=== PATIENT | female | born 1935 | race Caucasian/White ===

== ENCOUNTER 2019-12-18 14:52 | Outpatient (NON) | payer MEDICARE, SELFPAY ==
[2019-12-18 15:10] LABS: Basophils Absolute Auto 0.03 K/mm3 (0.00-0.10); Basophils Percent Auto 0.4 % (0.0-1.0); Eosinophils Absolute Auto 0.08 K/mm3 (0.02-0.50); Eosinophils Percent Auto 1.2 % (1.0-6.0); Hematocrit 39.4 % (35.0-42.0); Hemoglobin 13.1 g/dL (11.7-13.8); Immature Granulocyte Absolute 0.02 K/mm3 (0.00-0.00); Immature Granulocyte Percent A 0.3 % (0.0-0.0); Lymphocytes Absolute Auto 2.64 K/mm3 (1.10-4.50); Lymphocytes Percent Auto 38.9 % (18.0-42.0); Mean Corpuscular HGB Conc 33.2 g/dL (32.0-36.0); Mean Corpuscular Hemoglobin 30.6 pg (27.0-31.0); Mean Corpuscular Volume 92.1 fL (78.0-102.0); Mean Platelet Volume 9.8 fl (9.2-11.8); Monocytes Absolute Auto 0.55 K/mm3 (0.10-0.90); Monocytes Percent Auto 8.1 % (2.0-11.0); Neutrophils Absolute Auto 3.5 K/mm3 (1.7-7.2); Neutrophils Percent Auto 51.1 % (50.0-70.0); Platelet Count Result 242 K/mm3 (150-420); Red Blood Count 4.28 M/mm3 (4.20-5.40); Red Cell Distribution Width 12.3 % (11.6-14.4); White Blood Count 6.8 K/mm3 (4.8-10.8)
[2019-12-18 15:35] LABS: Alanine Aminotransferase 34 U/L (14-59); Alkaline Phosphatase 125 U/L (46-116); Anion Gap 8 mmol/L (8-16); Aspartate Amino Transferase 23 U/L (15-37); Bilirubin,Total 1.7 mg/dL (0.00-1.00); Blood Urea Nitrogen 18 mg/dL (7-18); Calcium 9.4 mg/dL (8.5-10.1); Carbon Dioxide 31 mmol/L (21-32); Chloride 102 mmol/L (98-108); Cholesterol 167 mg/dL (0-200); Estimated Glomerular Filt Rate 50; Glucose 147 mg/dL (70-99); HDL Direct 42 mg/dL (40-60); LDL Cholesterol Calculated 79 mg/dL (<130); Osmolality Calculated 296 mOsm/kg (285-295); Potassium 3.7 mmol/L (3.5-5.1); Sodium 141 mmol/L (136-145); Total Protein 7.8 g/dL (6.4-8.2); Triglycerides 228 mg/dL (0-150)
[2019-12-19 16:29] LABS: Hemoglobin A1C 5.9 % (<5.7)
== END 2019-12-18 14:53 ==
PROVIDERS: PCP Nurse Practitioner Family; Visit Provider Nurse Practitioner Family
DX: E78.5 Hyperlipidemia, unspecified (principal); Z00.00 Encounter for general adult medical examination without abnormal findings; I10 Essential (primary) hypertension; R73.01 Impaired fasting glucose
CPT/HCPCS: 36415; 80053; 80061; 83036; 85025

== ENCOUNTER 2020-08-31 15:29 | Emergency (ER) | payer MEDICARE, SELFPAY ==
--- NOTE | ~2020-08-31 | CT_ITS ---
EXAMINATION: CT chest abdomen pelvis w con DATE: 08/31/2020 17:22 INDICATION: Left lower chest pain and right upper quadrant abdominal pain. TECHNIQUE: Computed tomography (CT) of the chest, abdomen, and pelvis was performed with 100 mL Omnip aque-350 intravenous contrast. Automated exposure control and iterative reconstruction technique were employed. The dose-length product was 489.22 mGy-cm. COMPARISON: None FINDINGS: CHEST CT: Mild dependent atelectasis in the bilateral lower lobes. A few scattered small bilateral calcified pu lmonary nodules consistent with old granulomatous disease. No pneumonia, pulmonary edema, pleural eff usion or pneumothorax. Heart size is normal. Atherosclerotic coronary artery calcification is. Aortic valve calcification. No pericardial effusion. Thoracic aorta is normal in caliber with no dissection . No pathologically enlarged thoracic lymphadenopathy. A few old healed posterior right rib fractures . 4 cm heterogeneously enhancing thyroid nodule involving the isthmus and right thyroid lobe. ABDOMEN/PELVIS CT: Liver, gallbladder, spleen, pancreas, bilateral adrenal glands and kidneys are normal. Air-fluid leve l within a 2.2 cm duodenal diverticulum. Large amount of stool at the sigmoid colon and rectum. Corre late clinically for constipation. Bowels are otherwise unremarkable with no abnormal wall thickening or obstruction. The appendix is not visualized. No pericecal inflammatory change to suggest acute tani endicitis. Bladder is normal. The uterus is not identified and has likely been surgically resected. N o free intraperitoneal gas or fluid. There is calcified atherosclerosis of the aorta and many of the other arteries. No pathologically enlarged abdominal or pelvic lymphadenopathy. 25 degrees lumbar le voscoliosis with severe spondylosis. IMPRESSION: 1. No acute intrathoracic, abdominal or pelvic process. 2. 4 cm thyroid nodule. Reviewed, dictated and finalized at location A.
[2020-08-31 15:30] VITALS: BP 108/57; PULSE 66; PULSE 76; RESP 15; TEMP 36.6; O2SAT 94
--- NOTE | 2020-08-31 16:05 | ECG_ITS ---
Measurements Intervals [place] Rate: 69 P: 37 MO: 175 QRS: 7 QRSD: 97 T: 61 QT: 379 QTc: 408 Interpretive Statements SINUS RHYTHM NORMAL ECG Electronically Signed On 09-01-2020 20:42:08 CDT by Ag Hardin D.O.
[2020-08-31] MEDS: MAG HYDROX/ALUMINUM HYD/SIMETH 30 ML, PHENobarb/HYOSCY/ATROPINE/SCOP 32.4 MG, LIDOCAINE... PO (16:20)
[2020-08-31] MEDS: ONDANSETRON INJ 4 MG/2 ML VIAL IV PUSH (16:22)
[2020-08-31] MEDS: PANTOPRAZOLE SODIUM IV 40 MG VIAL IV PUSH (16:24)
[2020-08-31 16:26] LABS: Basophils Absolute Auto 0.05 K/mm3 (0.00-0.10); Basophils Percent Auto 0.6 % (0.0-1.0); Eosinophils Absolute Auto 0.11 K/mm3 (0.02-0.50); Eosinophils Percent Auto 1.3 % (1.0-6.0); Hematocrit 37.3 % (35.0-42.0); Hemoglobin 12.4 g/dL (11.7-13.8); Immature Granulocyte Absolute 0.03 K/mm3 (0.00-0.00); Immature Granulocyte Percent A 0.4 % (0.0-0.0); Lymphocytes Absolute Auto 2.33 K/mm3 (1.10-4.50); Lymphocytes Percent Auto 28.2 % (18.0-42.0); Mean Corpuscular HGB Conc 33.2 g/dL (32.0-36.0); Mean Corpuscular Hemoglobin 30.1 pg (27.0-31.0); Mean Corpuscular Volume 90.5 fL (78.0-102.0); Mean Platelet Volume 9.5 fl (9.2-11.8); Monocytes Absolute Auto 0.63 K/mm3 (0.10-0.90); Monocytes Percent Auto 7.6 % (2.0-11.0); Neutrophils Absolute Auto 5.1 K/mm3 (1.7-7.2); Neutrophils Percent Auto 61.9 % (50.0-70.0); Platelet Count Result 264 K/mm3 (150-420); Red Blood Count 4.12 M/mm3 (4.20-5.40); Red Cell Distribution Width 12.5 % (11.6-14.4); White Blood Count 8.3 K/mm3 (4.8-10.8)
[2020-08-31 16:42] LABS: INR 1.1; Partial Thromboplastin Time 34.7 SEC (23.90-30.70); Prothrombin Time 11.5 Seconds (9.50-12.10)
[2020-08-31 16:50] LABS: Alanine Aminotransferase 23 U/L (14-59); Albumin Level 3.5 g/dL (3.4-5.0); Alkaline Phosphatase 96 U/L (46-116); Anion Gap 10 mmol/L (8-16); Aspartate Amino Transferase 18 U/L (15-37); Bilirubin,Total 1.4 mg/dL (0.00-1.00); Blood Urea Nitrogen 16 mg/dL (7-18); Calcium 8.6 mg/dL (8.5-10.1); Carbon Dioxide 29 mmol/L (21-32); Chloride 104 mmol/L (98-108); Estimated Glomerular Filt Rate 52; Glucose 135 mg/dL (70-99); Lipase 105 U/L (73-393); NT Pro B Type Natriuretic Pept 212 pg/mL (0-450); Osmolality Calculated 299 mOsm/kg (285-295); Potassium 3.8 mmol/L (3.5-5.1); Sodium 143 mmol/L (136-145)
[2020-08-31 18:10] LABS: Add Urine Microscopic? YES; Bilirubin Urine Negative (Negative); Blood Urine Negative (Negative); Color Urine Light Yellow (Yellow); Glucose Urine UA Negative (Negative); Ketones Urine Negative (Negative); Leukocyte Esterase Ur Trace LEU/UL (Negative); Nitrate Urine Negative (Negative); Protein Urine Negative (Negative); pH Urine 5.5 (5.0-8.0)
[2020-08-31 18:15] LABS: Appearance Urine Sl Cloudy (Clear); Squamous Epithelial Cell Urine Few /hpf (Few); WBC Urine None seen /hpf (0-3)
--- NOTE | 2020-08-31 18:52 | ED.CHESTPAIN ---
HPI - Chest Pain General Chief Complaint: Chest Pain Stated Complaint: chest pain Time Seen by Provider: 08/31/20 15:32 Source: patient and RN notes reviewed Mode of arrival: ambulatory Limitations: no limitations History of Present Illness HPI narrative: left lower chest to left upper quadrant abdomen pain x 6 hrs. multiple burping episodes. complaint: chest pain Onset (ago): hour(s) (6) Timing of current episode: episodic Prior episodes: No Onset: during rest Pain location: left chest Pain radiation: back Severity: mild Pain scale (0-10): 7 Quality: aching, dull and burning Relieving factors: antacids Exacerbating factors: nothing Associated symptoms: nausea Treatment prior to arrival: none Related Data On Oral Contraceptives: No Home Medications Medication Instructions Recorded Confirmed vitamin B complex 1 tablet PO DAILY 03/15/19 08/31/20 amlodipine 10 mg PO DAILY 08/31/20 08/31/20 aspirin 81 mg PO DAILY 08/31/20 08/31/20 atorvastatin 80 mg PO DAILY 08/31/20 08/31/20 hydrochlorothiazide 12.5 mg PO DAILY 08/31/20 08/31/20 losartan 50 mg PO DAILY 08/31/20 08/31/20 meclizine 12.5 mg PO TID 08/31/20 08/31/20 Allergies Allergy/AdvReac Type Severity Reaction Status Date / Time No Known Allergies Allergy Verified 06/12/20 14:22 Review of Systems Review of Systems: All systems reviewed & are unremarkable except as noted in HPI and below Constitutional: Constitutional: Reports as per HPI and Reports no additional constitutional complaints Eyes: Eyes: Reports as per HPI and Reports no additional eye complaints ENT: Reports system reviewed and no additional complaints, except as documented and Reports as per HPI Cardiovascular: Cardiovascular: Reports as per HPI, Reports no additional cardiovascular complaints and Reports chest pain Respiratory: Respiratory: Reports as per HPI and Reports no additional respiratory complaints Gastrointestinal: Gastrointestinal: Reports as per HPI, Reports no additional gastrointestinal complaints, Reports heartburn and Reports nausea Genitourinary: Genitourinary: Reports no additional female genitourinary complaints and Reports as per HPI Musculoskeletal: Musculoskeletal: Reports no additional musculoskeletal complaints and Reports as per HPI Integumentary/Breasts: Skin/Breast: Reports system reviewed and no additional complaints, except as docu and Reports as per HPI Neurologic: Reports system reviewed and no additional complaints, except as documented and Reports as per HPI Psychiatric: Psychiatric: Reports no additional psychiatric complaints and Reports as per HPI Endocrine: Endocrine: Reports no additional endocrine complaints and Reports as per HPI Hematologic/Lymphatic: Hematologic/Lymphatic: Reports no additional hematologic/lymphatic complaints and Reports as per HPI Allergic/Immunologic: Allergic/Immunologic: Reports no additional allergic/immunologic complaints and Reports as per HPI PMFSH Past Medical History Medical History Hyperlipemia Hypertension Irregular bowel habits Syncopal episodes Surgical History Surgical History H/O: hysterectomy Social History Social History Smoking status: Never smoker Alcohol intake: never Substance use: never Substance use type: does not use Gender identity (if verbalized by the patient): Female Spiritual care concerns: No Exam Const: General: healthy appearing, no acute distress and alert Nutritional Appearance: well nourished Orientation/consciousness: patient oriented x3 HENMT: Head: normal to inspection Ears: TM's normal bilaterally General nose exam: Normal external nose present and Normal nares present Mouth: Yes moist mucous membranes Eyes: Conjunctivae: conjunctivae normal Pupils: Equal, round and reactive pupils present
[2020-08-31] MEDS: cefTRIAXone 1 GM VIAL IM (18:57)
[2020-08-31 19:04] VITALS: BP 120/71; PULSE 72; RESP 15; TEMP 36.6; O2SAT 98
== END 2020-08-31 19:05 | disposition home or self-care (01) ==
PROVIDERS: Emergency Provider Emergency Medicine; PCP Nurse Practitioner Family
DX: N39.0 Urinary tract infection, site not specified (principal); R07.89 Other chest pain; K29.00 Acute gastritis without bleeding; E78.5 Hyperlipidemia, unspecified; I10 Essential (primary) hypertension
CPT/HCPCS: 36415; 71260; 74177; 80053; 81001; 83690; 83880; 84484; 85025; 85610; 85730; 93005; 96372; 96374; 96375; 99283; 99284; A9270; C9113; J0696; J2405; Q9967

== ENCOUNTER 2020-10-08 14:16 | Outpatient (NON) | payer MEDICARE, SELFPAY ==
[2020-10-08 14:33] LABS: Basophils Absolute Auto 0.03 K/mm3 (0.00-0.10); Basophils Percent Auto 0.4 % (0.0-1.0); Eosinophils Absolute Auto 0.08 K/mm3 (0.02-0.50); Hematocrit 38.8 % (35.0-42.0); Hemoglobin 12.8 g/dL (11.7-13.8); Immature Granulocyte Absolute 0.02 K/mm3 (0.00-0.00); Immature Granulocyte Percent A 0.3 % (0.0-0.0); Lymphocytes Absolute Auto 2.87 K/mm3 (1.10-4.50); Lymphocytes Percent Auto 36.9 % (18.0-42.0); Mean Corpuscular Hemoglobin 30.1 pg (27.0-31.0); Mean Corpuscular Volume 91.3 fL (78.0-102.0); Mean Platelet Volume 9.4 fl (9.2-11.8); Monocytes Absolute Auto 0.54 K/mm3 (0.10-0.90); Monocytes Percent Auto 6.9 % (2.0-11.0); Neutrophils Absolute Auto 4.2 K/mm3 (1.7-7.2); Neutrophils Percent Auto 54.5 % (50.0-70.0); Platelet Count Result 318 K/mm3 (150-420); Red Blood Count 4.25 M/mm3 (4.20-5.40); Red Cell Distribution Width 13.3 % (11.6-14.4); White Blood Count 7.8 K/mm3 (4.8-10.8)
[2020-10-08 14:33] LABS: Add Urine Microscopic? YES; Appearance Urine Cloudy (Clear); Bilirubin Urine Negative (Negative); Blood Urine Negative (Negative); Color Urine Light Yellow (Yellow); Glucose Urine UA Negative (Negative); Ketones Urine Negative (Negative); Leukocyte Esterase Ur 2+ LEU/UL (Negative); Nitrate Urine Negative (Negative); Protein Urine Negative (Negative); Specific Grav Ur 1.025 (1.010-1.020)
[2020-10-08 14:38] LABS: Bacteria Urine 2+ /hpf; RBC Urine None seen /hpf (0-2); Renal Epithelial Cells Urine Moderate /hpf; Squamous Epithelial Cell Urine Moderate /hpf (Few)
[2020-10-08 15:07] LABS: Alanine Aminotransferase 29 U/L (14-59); Alkaline Phosphatase 94 U/L (46-116); Anion Gap 11 mmol/L (8-16); Aspartate Amino Transferase 22 U/L (15-37); Bilirubin,Total 2.1 mg/dL (0.00-1.00); Blood Urea Nitrogen 24 mg/dL (7-18); Calcium 8.6 mg/dL (8.5-10.1); Carbon Dioxide 28 mmol/L (21-32); Chloride 101 mmol/L (98-108); Estimated Glomerular Filt Rate 48; Free T4 Free Thyroxine 0.96 ng/dL (0.76-1.46); Glucose 115 mg/dL (70-99); Osmolality Calculated 295 mOsm/kg (285-295); Potassium 3.9 mmol/L (3.5-5.1); Sodium 140 mmol/L (136-145); Thyroid Stimulating Hormone 1.84 uIU/mL (0.36-3.74); Total Protein 7.8 g/dL (6.4-8.2); Vitamin B12 406 pg/mL (193-986)
[2020-10-10 14:21] LABS: Vitamin D 25 Hydroxy 35 ng/mL (30-100)
== END 2020-10-08 14:17 | disposition home or self-care (01) ==
LOC: CHSLAB 14:22
PROVIDERS: Visit Provider Nurse Practitioner Family
DX: R53.1 Weakness (principal); R53.83 Other fatigue; Z79.899 Other long term (current) drug therapy; R82.90 Unspecified abnormal findings in urine
CPT/HCPCS: 36415; 80053; 81001; 82306; 82607; 83735; 84439; 84443; 85025; 87077; 87086; 87088; 87186

== ENCOUNTER 2021-07-30 11:30 | Emergency (ER) | payer MEDICARE, SELFPAY ==
[2021-07-30] VITALS (12 sets, daily range): BP systolic 117–138; BP diastolic 59–105; PULSE 70–76; RESP 12–27; TEMP 36.9–37.2; O2SAT 96–100
--- NOTE | ~2021-07-30 | CT_ITS ---
EXAMINATION: CT pelvis wo con DATE: 07/30/2021 12:14 INDICATION: Left hip pain post fall TECHNIQUE: High resolution computed tomography (CT) of the pelvis was performed without intravenous c ontrast. Additional sagittal and coronal reconstructions were performed. Automated exposure control a nd iterative reconstruction technique were employed. The dose-length product was 297.39 mGy-cm. COMPARISON: CT chest, abdomen pelvis dated 08/31/2020 FINDINGS: Mild lumbar levorotoscoliosis with severe spondylosis evident on the waste duster topogram. No fracture. Kalpesh yarticular osteoarthritis, moderate to severe at the bilateral lower lumbar facet joints, left greate r than right, moderate at the left and mild at the right sacroiliac joints and mild at the bilateral hip joints. No hip joint effusions. There is some fatty atrophy of the bilateral gluteus medius minim us and right gluteus medius muscle bellies, typically resulting from chronic partial tendon tears. Th e uterus is not identified and has likely been surgically resected. Bladder and visualized portion of the bowels are unremarkable. No free fluid in the pelvis. No pathologically enlarged pelvic or ingui nal lymphadenopathy.. IMPRESSION: 1. No acute osseous abnormality. Reviewed, dictated and finalized at location A.
--- NOTE | ~2021-07-30 | CT_ITS ---
EXAMINATION: CT brain wo con DATE: 07/30/2021 12:14 INDICATION: Head injury. TECHNIQUE: Computed tomography (CT) of the head was performed without intravenous contrast. The mA wa s adjusted according to patient size. Iterative reconstruction technique was employed. The dose-lengt h product was 605.33 mGy-cm. COMPARISON: None FINDINGS: There is acute subarachnoid hemorrhage in sulci in left frontal lobe. There is a small focu s of acute subarachnoid hemorrhage in a sulcus in right frontal lobe. There is a small hematoma at th e septum pellucidum. There are scattered areas of low attenuation in the cerebral white matter. There is no acute ischemic infarct or abnormal mass lesion. The ventricles are normal in size. There is mu cosal thickening in the paranasal sinuses. There is hematoma in left maxillary sinus. There are acute fractures of the left zygomaticomaxillary complex. The mastoid air cells are normal. There are likel y changes of ocular lens replacement surgeries. IMPRESSION: 1. Acute subarachnoid hemorrhage in sulci in the frontal lobes. Small acute hematoma at the septum pe llucidum. 2. Moderate nonspecific cerebral white matter disease, which likely represents chronic small vessel i schemic disease. 3. Acute fractures of the left zygomaticomaxillary complex. Reviewed, dictated and finalized at location B. IMPRESSION: 1. Acute subarachnoid hemorrhage in sulci in the frontal lobes. Small acute hem atoma at the septum pellucidum. 2. Moderate nonspecific cerebral white matter disease, which likely represents chronic small vessel ischemic disease. 3. Acute fractures of the left zygomaticomaxillary complex.
--- NOTE | ~2021-07-30 | XR_ITS ---
XR chest 1V portable DATE: 07/30/2021 12:16 INDICATION: Fall. At least axis. Lethargy. TECHNIQUE: Portable AP chest on 07/30/2021 at 1220 hours COMPARISON: 08/31/2020 CT chest abdomen pelvis FINDINGS: Normal heart size. Aortic calcification. Mild bilateral apical capping. No pulmonary infiltrate or consolidation, pleural effusion or pulmonary vascular congestion or pneumo thorax is evident. Osteopenia. IMPRESSION: No active cardiopulmonary disease Aortic calcification Osteopenia Reviewed, dictated and finalized at location A.
--- NOTE | ~2021-07-30 | CT_ITS ---
EXAMINATION: CT facial & cervical spine wo DATE: 07/30/2021 12:14 INDICATION: Head injury. TECHNIQUE: Computed tomography (CT) of the maxillofacial region and cervical spine was performed with out intravenous contrast. Automated exposure control and iterative reconstruction technique were empl oyed. The dose-length product was 135.37 mGy-cm. COMPARISON: Chest CT 08/31/2020 FINDINGS: MAXILLOFACIAL CT: There are likely changes of ocular lens replacement surgeries. There are fractures of the anterior an d posterolateral tesfaye of left maxillary sinus, left zygomatic arch, lateral wall of left orbit, and floor of left orbit. There is approximately 2 mm inward displacement of the zygoma fracture fragment. There is mucosal thickening in the paranasal sinuses. There is acute hematoma in left maxillary sinu s. CERVICAL SPINE CT: There is mild scarring at the lung apices. Partially visualized is a chronic multinodular goiter. Fur ther evaluation is likely not needed given the patient's age. There is 8 degrees levocurvature of cer vical spine. There is 3 mm retrolisthesis of C3 on C4. There is mildly decreased disc height at C2-C3 , severely decreased disc height from C3-C4 through C5-C6, and moderately decreased disc height at C6 -C7. The following disc levels are specifically discussed: C2-C3: There is no uncovertebral joint osteoarthritis. There is mild left facet joint osteoarthritis. There is ankylosis of right facet joint with mild hypertrophy. There is no neural foraminal stenosis . There is no central canal stenosis. C3-C4: There is severe bilateral uncovertebral joint osteoarthritis. There is moderate right and qamar re left facet joint osteoarthritis. There is moderate right and mild left neural foraminal stenosis. There is mild central canal stenosis. C4-C5: There is severe bilateral uncovertebral joint osteoarthritis. There is severe bilateral facet joint osteoarthritis. There is moderate right and mild left neural foraminal stenosis. There is mild central canal stenosis. C5-C6: There is mild left uncovertebral joint osteoarthritis. There is ankylosis of right facet joint with mild hypertrophy. There is moderate left facet joint osteoarthritis. There is ankylosis of righ t facet joint with moderate hypertrophy. There is mild bilateral neural foraminal stenosis. There is mild central canal stenosis. C6-C7: There is severe bilateral uncovertebral joint osteoarthritis. There is severe bilateral facet joint osteoarthritis. There is mild bilateral neural foraminal stenosis. There is no central canal st enosis. C7-T1: There is no uncovertebral joint osteoarthritis. There is severe bilateral facet joint osteoart hritis. There is mild bilateral neural foraminal stenosis. There is no central canal stenosis. IMPRESSION: 1. Acute fractures of the left zygomaticomaxillary complex. 2. Severe cervical spondylosis. Reviewed, dictated and finalized at location B.
--- NOTE | 2021-07-30 11:48 | ECG_ITS ---
Measurements Intervals [place] Rate: 68 P: 62 OR: 188 QRS: 48 QRSD: 98 T: 60 QT: 413 QTc: 440 Interpretive Statements SINUS RHYTHM SLIGHT ST ELEVATION INFERIOR LEADS, CONSIDER INJURY PATTERN NO SIGNIFICANT CHANGES FROM PREVIOUS ECG ABNORMAL ECG COMPARED TO ECG 08/31/2020 15:41:42 NO SIGNIFICANT CHANGES Electronically Signed On 07-30-2021 12:30:54 CDT by [place] M.D.
--- NOTE | 2021-07-30 12:03 | ED.FALL ---
HPI - Fall General Chief Complaint: Fall Stated Complaint: [facility] [place] Time Seen by Provider: 07/30/21 11:33 History of Present Illness HPI Narrative: Pt has functional dementia and fell hitting her left orbital head and left chin x 1 hr. pt is confused and not able to give history. she cooperated with the exam. complaint: fall Onset (ago): hour(s) (1) Fall from: standing Fall witnessed: yes, by bystander Place fall occurred: street Loss of consciousness: unsure Prolonged down time: no Symptoms prior to fall: other (uncertain) Location of injury: head and face Severity scale (1-10): 2 Quality: dull Associated symptoms (after fall): other (pt had left hip pain, denied any other sxs.) Related Data Home Medications Medication Instructions Recorded Confirmed acetaminophen 500 mg tablet 500 mg PO Q6H PRN 08/05/21 09/04/21 (Tylenol Extra Strength) Allergies Allergy/AdvReac Type Severity Reaction Status Date / Time No Known Allergies Allergy Verified 09/04/21 13:10 Review of Systems Review of Systems: ROS unobtainable: Yes unobtainable due to medical condition and other (pt has the dementia.) Constitutional: Constitutional: Reports no additional constitutional complaints Comments: p Eyes: Eyes: Reports no additional eye complaints ENT: Reports system reviewed and no additional complaints, except as documented Cardiovascular: Cardiovascular: Reports no additional cardiovascular complaints Respiratory: Respiratory: Reports no additional respiratory complaints Gastrointestinal: Gastrointestinal: Reports no additional gastrointestinal complaints Genitourinary: Genitourinary: Reports no additional female genitourinary complaints Musculoskeletal: Musculoskeletal: Reports no additional musculoskeletal complaints Integumentary/Breasts: Skin/Breast: Reports system reviewed and no additional complaints, except as docu Neurologic: Reports system reviewed and no additional complaints, except as documented Psychiatric: Psychiatric: Reports no additional psychiatric complaints Endocrine: Endocrine: Reports no additional endocrine complaints Hematologic/Lymphatic: Hematologic/Lymphatic: Reports no additional hematologic/lymphatic complaints Allergic/Immunologic: Allergic/Immunologic: Reports no additional allergic/immunologic complaints PMFSH Past Medical History Medical History Dementia Facial bones, closed fracture Hyperlipemia Hypertension Intracranial bleed Irregular bowel habits Syncopal episodes Surgical History Surgical History H/O: hysterectomy Social History Social History Smoking status: Never smoker Alcohol intake: never Substance use: never Substance use type: does not use Gender identity (if verbalized by the patient): Female Spiritual care concerns: No Exam Const: General: healthy appearing, no acute distress and confusion Nutritional Appearance: well nourished Limitations: other limitations (dementia) HENMT: Head: laceration (left chin 2.2 cm laceration. left lateral orbital bruising. no epist) Ears: external ears normal, TM's normal bilaterally and EAC's normal General nose exam: Normal external nose present and Normal nares present Face and sinus: sinuses nontender Mouth: Yes Normal oral and palatal mucosa present and Yes moist mucous membranes Teeth and gingiva: dentition normal Throat: posterior oropharynx normal Eyes: Conjunctivae: conjunctivae normal Pupils: Equal, round and reactive pupils present EOM: EOMs intact bilaterally Neck: Neck: normal visual inspection, no lymphadenopathy and no meningeal signs Chest: Chest palpation & inspection: normal inspection of the chest Resp: Effort & Inspection: normal respiratory effort Auscultation: clear to auscultation bilaterall
--- NOTE | 2021-07-30 12:03 | PC.NURSE ---
SPOKE WITH DR [facility] [employer], PT HAS NOT BEEN THERE IN ALMOST A YEAR, NO EVIDENCE OF MEDICATION REFILLS SINCE THEN. [id number] DOES NOT KNOW PMD NAME, IF SHE HAS HAD COVID OR TETNUS VACCINES, WHAT MEDICATIONS PT TAKES, ALLERGIES, THE LAST TIME PT HAS TAKEN HER MEDICATIONS. [id number] REPORTS PT LIVES ALONE, THAT SHE AND HER SON LIVE 3 HOUSES DOWN AND CHECK ON HER ALL THE TIME. PT IS A & O X1, THIS IS PT NORMAL PER PATRICK. PATRICK REPORTS SHE IS THE ONE WHO TAKES PT TO DR APPOINTMENTS, HOWEVER HAS NOT TAKEN HER RECENTLY BECAUSE SHE DOESN'T WANT TO GO.
[2021-07-30 12:32] LABS: Basophils Absolute Auto 0.04 K/mm3 (0.00-0.10); Basophils Percent Auto 0.5 % (0.0-1.0); Eosinophils Absolute Auto 0.02 K/mm3 (0.02-0.50); Eosinophils Percent Auto 0.2 % (1.0-6.0); Hematocrit 38.4 % (35.0-42.0); Hemoglobin 12.8 g/dL (11.7-13.8); Immature Granulocyte Absolute 0.04 K/mm3 (0.00-0.00); Immature Granulocyte Percent A 0.5 % (0.0-0.0); Lymphocytes Absolute Auto 1.12 K/mm3 (1.10-4.50); Lymphocytes Percent Auto 13.8 % (18.0-42.0); Mean Corpuscular HGB Conc 33.3 g/dL (32.0-36.0); Mean Corpuscular Hemoglobin 31.1 pg (27.0-31.0); Mean Corpuscular Volume 93.4 fL (78.0-102.0); Mean Platelet Volume 9.6 fl (9.2-11.8); Monocytes Absolute Auto 0.46 K/mm3 (0.10-0.90); Monocytes Percent Auto 5.7 % (2.0-11.0); Neutrophils Absolute Auto 6.4 K/mm3 (1.7-7.2); Neutrophils Percent Auto 79.3 % (50.0-70.0); Platelet Count Result 222 K/mm3 (150-420); Red Blood Count 4.11 M/mm3 (4.20-5.40); Red Cell Distribution Width 12.9 % (11.6-14.4); White Blood Count 8.1 K/mm3 (4.8-10.8)
[2021-07-30] MEDS: SODIUM CHLORIDE 0.9% IV 500 ML 999 ML IV CONT (12:42)
--- NOTE | 2021-07-30 12:44 | PC.NURSE ---
FAMILY HAS RETURNED. PT IS AWAITING RETURN CALL FROM [facility] AT THIS TIME. WILL CONTINUE TO MONITOR.
[2021-07-30 12:48] LABS: Alanine Aminotransferase 23 U/L (14-59); Albumin Level 4.1 g/dL (3.4-5.0); Alkaline Phosphatase 84 U/L (46-116); Anion Gap 10 mmol/L (8-16); Aspartate Amino Transferase 21 U/L (15-37); Bilirubin,Total 2.5 mg/dL (0.00-1.00); Blood Urea Nitrogen 19 mg/dL (7-18); Calcium 9.3 mg/dL (8.5-10.1); Carbon Dioxide 24 mmol/L (21-32); Chloride 104 mmol/L (98-108); Estimated CRCL calculation 32 ml/min; Estimated Glomerular Filt Rate 52; Glucose 103 mg/dL (70-99); Lactic Acid Reflex 1.6 mmol/L (0.4-2.0); Osmolality Calculated 288 mOsm/kg (285-295); Potassium 3.9 mmol/L (3.5-5.1); Sodium 138 mmol/L (136-145); Total Protein 7.6 g/dL (6.4-8.2); Troponin I 14.1 ng/L (0.00-60.4)
--- NOTE | 2021-07-30 13:29 | PC.NURSE ---
DAUGHTER IN LAW TOOK PT BELONGINGS HOME
--- NOTE | 2021-07-30 13:30 | PC.NURSE ---
HAVE LEFT MESSAGE AT [facility] ABUSE LINE
== END 2021-07-30 13:29 | disposition short-term general hospital (02) ==
LOC: CHSED 11:34
PROVIDERS: Emergency Provider Emergency Medicine
DX: I62.9 Nontraumatic intracranial hemorrhage, unspecified (principal); F03.90 Unspecified dementia, unspecified severity, without behavioral disturbance, psychotic disturbance, mood disturbance, and anxiety; W19.XXXA Unspecified fall, initial encounter; E78.5 Hyperlipidemia, unspecified; I10 Essential (primary) hypertension
CPT/HCPCS: 36415; 70450; 70486; 71045; 72125; 72192; 80053; 83605; 84484; 85025; 93005; 96360; 99291; J7040

== ENCOUNTER 2023-09-23 14:27 | Outpatient (CLI) | payer MEDICARE, SELFPAY ==
[2023-09-23 14:40] LABS: Basophils Absolute Auto 0.03 K/mm3 (0.00-0.10); Basophils Percent Auto 0.5 % (0.0-1.0); Eosinophils Absolute Auto 0.06 K/mm3 (0.02-0.50); Eosinophils Percent Auto 1.1 % (1.0-6.0); Hemoglobin 12.3 g/dL (11.7-13.8); Immature Granulocyte Absolute 0.02 K/mm3 (0.00-0.00); Immature Granulocyte Percent A 0.4 % (0.0-0.0); Lymphocytes Absolute Auto 2.25 K/mm3 (1.10-4.50); Lymphocytes Percent Auto 39.6 % (18.0-42.0); Mean Corpuscular HGB Conc 33.2 g/dL (32-36); Mean Corpuscular Hemoglobin 30.2 pg (27.0-31.0); Mean Corpuscular Volume 90.9 fL (78.0-102.0); Mean Platelet Volume 9.8 fl (9.2-11.8); Monocytes Absolute Auto 0.44 K/mm3 (0.10-0.90); Monocytes Percent Auto 7.7 % (2.0-11.0); Neutrophils Absolute Auto 2.88 K/mm3 (1.70-7.20); Neutrophils Percent Auto 50.7 % (50.0-70.0); Platelet Count Result 233 K/mm3 (150-420); Red Blood Count 4.07 M/mm3 (4.20-5.40); White Blood Count 5.7 K/mm3 (4.8-10.8)
[2023-09-23 14:56] LABS: Alanine Aminotransferase 24 U/L (14-59); Albumin Level 3.9 g/dL (3.4-5.0); Alkaline Phosphatase 135 U/L (46-116); Anion Gap 7 mmol/L (4-12); Aspartate Amino Transferase 20 U/L (15-37); Blood Urea Nitrogen 22 mg/dL (7-18); Calcium 8.6 mg/dL (8.5-10.1); Carbon Dioxide 32 mmol/L (21-32); Chloride 104 mmol/L (98-108); Cholesterol 215 mg/dL (0-200); Estimated Glomerular Filt Rate > 60; Glucose 123 mg/dL (70-99); HDL Direct 51 mg/dL (40-60); LDL Cholesterol Calculated 118 mg/dL (<130); Osmolality Calculated 300 mOsm/kg (285-295); Sodium 143 mmol/L (136-145); Total Protein 7.3 g/dL (6.4-8.2); Triglycerides 231 mg/dL (0-150)
== END 2023-09-23 14:28 | disposition home or self-care (01) ==
LOC: CHSLAB 14:29
PROVIDERS: PCP Nurse Practitioner Family; Visit Provider Nurse Practitioner Family
DX: E78.5 Hyperlipidemia, unspecified (principal); Z13.6 Encounter for screening for cardiovascular disorders; I10 Essential (primary) hypertension
CPT/HCPCS: 36415; 80053; 80061; 85025